=== PATIENT | female | born 1940 | race Caucasian/White ===

== ENCOUNTER → 2024-12-21 14:59 | Outpatient (REF) | payer OTHER, SELFPAY | LOC: WDC 14:59 | PROVIDERS: ATTENDING PHYSICIAN Surgery | DX: C50.411 Malignant neoplasm of upper-outer quadrant of right female breast (principal); Z17.0 Estrogen receptor positive status [ER+] | CPT/HCPCS: 76642 ==

== ENCOUNTER 2025-01-01 06:10 | Day surgery (SDC) | payer OTHER, SELFPAY ==
[2024-12-24 11:22] LABS: Hematocrit 42.8 % (37.0-47.0); Hemoglobin 13.9 g/dL (12.0-16.0); Mean Corp Hgb Conc. 32.5 g/dL (33.0-37.0); Mean Corpuscular Volume 92.2 fL (81.0-99.0); Platelet Count 229 10^3/uL (130-400); Red Cell Dist. Width 13.9 % (11.5-14.5)
[2024-12-24 11:50] LABS: ALT (SGPT) 23 U/L (0-35); AST (SGOT) 25 U/L (14-36); Albumin 4.7 g/dl (3.5-5.0); Alkaline Phosphatase 64 U/L (38-126); Blood Urea Nitrogen 21 mg/dl (7-17); Calcium 10.5 mg/dl (8.4-10.2); Carbon Dioxide 32 mmol/L (22-30); Chloride 100 mmol/L (98-107); Glucose 94 mg/dl (70-99); Potassium 4.7 mmol/L (3.5-5.1); Sodium 139 mmol/L (135-145); Total Protein 7.3 g/dl (6.3-8.2); eGFR > 60.00
[2024-12-24 11:59] LABS: Prealbumin (Transthyretin) 32.2 mg/dl (17.6-36.0)
[2024-12-24 12:10] LABS: Vitamin D, 25-OH*** 36.5 ng/mL (30-80)
[2024-12-24 14:18] VITALS: BMI 27.9
[2025-01-01 06:57] VITALS: BMI 27.9
--- NOTE | 2025-01-01 07:03 | W.SUR.PREOP ---
Pre-Operative Surgical Note
-
I have examined this patient prior to the performance of the scheduled procedure.
The patient's condition is unchanged from the time of the current History and
Physical and the patient is able to undergo the scheduled procedure.
[2025-01-01 07:09] VITALS: BP 146/87
[2025-01-01] MEDS: LOVENOX 40 MG SC (07:16)
[2025-01-01] MEDS: TYLENOL 1000 MG PO (07:16)
[2025-01-01] MEDS: NORMOSOL-R/PLASMALYTE-A 1000 IV (07:16)
[2025-01-01 08:42] VITALS: BP 120/63
[2025-01-01 08:45] VITALS: BP 115/73
--- NOTE | 2025-01-01 08:50 | W.IMMPOSTOP ---
Surgical Immed Post Op Note
-
Primary Surgeon: Jeanne
Assisting Surgeon: None
Pre-op Diagnosis: Right breast ca
Post-op Diagnosis: Right breast ca
Procedure Performed: Right lumpectomy and oncoplastic mastoplasty
Anesthesia Type: TIVA
Specimen / Cultures: Right lumpectomy and margins
Estimated Blood Loss: 4cc
Complications: None
Operative Findings: None
--- NOTE | 2025-01-01 08:51 | OR.RPT ---
Operative Report
Operative Report
Procedure date: 01/01/25
Surgeon: Jeanne
Anes: TIVA
Pre-op DX: Right breast carcinoma
Post-op DX: Right breast carcinoma
Procedure: Right lumpectomy and oncoplastic mastoplasty
The patient is an 84 Y/O female diagnosed with right breast carcinoma after palpating a mass in her right breast.
On the day of the procedure she presented [facility]. She was prepped and received
DVT and antibiotic prophylaxis. Her pre-op labs showed a mild elevation in her WBC and when asked yesterday, she
denied any symptoms especially urinary. Today she admitted to more frequent urination that just started. She denied
any burning or pain. Due to the need to treat her cancer in a timely fashion, she was informed that she would be
at a higher risk for a wound infection. We will ask her to provide a urine specimen for C & S.
She was taken to the Operating Room and in the supine position, intravenous sedation was administered. All tissues
were anesthetized with 1% lidocaine plain. A curvilinear incision was made in the lower breast with the blade.
Dissection was carried down to the appropriate level and a wide lumpectomy was performed with the cautery.
Time out of body was noted and the specimen was oriented for the pathologist. Additional margins were
harvested for analysis from the posterior, medial, superior, lateral, inferior and anterior directions and oriented as
well. Hemostasis was maintained witht he cautery and this left a resultant defect of 7 x 4 cm. In an oncoplastic
fashion, the oncoplastic plain was entered and elevated around the entire incision. A separate parenchymal incision
was made to advance a tissue flap. Marcaine .5% plain was instilled into all tissues and hemoclips were placed at the borders
of the resection cavity.
The wound was closed in multiple layers using simple interrupted 3-O plain internally and simple interrupted 4-O vicryl on subcutaneous
tissue. Skin was closed with a running subcuticular 4-O Biosyn. Several simple interrupted sutures were placed for extra support.
Surgical glue and a sterile compressive dressing were placed. All sponge, needle and instrument counts were correct and the patient
was transferred back to [facility] to recover.
([id number])
[2025-01-01 09:00] VITALS: BP 137/76
[2025-01-01 09:33] LABS: Urine Character Clear (Clear)
[2025-01-01 10:30] LABS: Urine Urothelial Cell 0-2 /LPF (FEW)
[2025-01-01 10:31] LABS: Urine Red Blood Cell 0-2 /HPF (0-2)
== END 2025-01-01 10:29 | disposition home or self-care (01) ==
LOC: SDS 06:10
PROVIDERS: ATTENDING PHYSICIAN Surgery
DX: C50.911 Malignant neoplasm of unspecified site of right female breast (principal); Z17.0 Estrogen receptor positive status [ER+]
CPT/HCPCS: 19301; 36415; 80053; 81003; 81015; 82306; 84134; 85027; 87086; 88305; 88307; 93005

== ENCOUNTER → 2025-03-13 14:17 | Outpatient (REF) | payer OTHER, SELFPAY | LOC: HWRAD 14:17 | PROVIDERS: ATTENDING PHYSICIAN Internal Medicine Hematology & Oncology | DX: Z78.0 Asymptomatic menopausal state (principal) | CPT/HCPCS: 77080 ==